=== PATIENT | female | born 1985 | race Caucasian/White ===

== ENCOUNTER 2016-05-20 18:00 | Observation (INO) | payer MEDICAID ==
[~2016-05-20 18:00] MED LIST: METF500T4 PO
[2016-05-20] MEDS ORDERED: GLYB5 PO (19:21)
[2016-05-20] MEDS ORDERED: PREN1TAB80 PO (19:22)
[2016-05-20 19:26] VITALS: BP 111/76
[2016-05-20 20:12] LABS: HEMOGLOBIN A1C 7.4 % (4.5-6.2)
[2016-05-21] MEDS ORDERED: GLYB2.5T5 PO (20:06)
== END 2016-05-20 22:25 | disposition home or self-care (01) ==
LOC: 4S 18:00
PROVIDERS: ADMIT Obstetrics & Gynecology; ATTEND Obstetrics & Gynecology
DX: O46.93 Antepartum hemorrhage, unspecified, third trimester (principal); O24.419 Gestational diabetes mellitus in pregnancy, unspecified control; O40.3XX0 Polyhydramnios, third trimester, not applicable or unspecified; O26.893 Other specified pregnancy related conditions, third trimester; R10.2 Pelvic and perineal pain; Z3A.35 35 weeks gestation of pregnancy
CPT/HCPCS: 36415; 59025; 76805; 82947; 83036; G0378

== ENCOUNTER 2016-05-21 19:56 | Inpatient (IN) | payer MEDICAID ==
[~2016-05-21] VITALS: Ht 152.4 cm; Wt 65.8 kg
[~2016-05-21 19:56] MED LIST changes: +GLYB5 PO; +PREN1TAB80 PO
[2016-05-21] MEDS ORDERED: RINGERS SOLUTION,LACTATED 1,000 ML IV SCH (20:04)
[2016-05-21] MEDS ORDERED: GLYB2.5T5 PO (20:06)
[2016-05-21] MEDS ORDERED: CITRIC ACID/SODIUM CITRATE 30 ML SOLUTION UDCUP PO PRN (20:15)
[2016-05-21] MEDS ORDERED: TERBUTALINE SULFATE 1 MG/ML VIAL SQ PRN (20:15)
[2016-05-21] MEDS ORDERED: METOCLOPRAMIDE HCL 5 MG/ML 2 ML VIAL IVP PRN (20:15)
[2016-05-21 20:25] VITALS: BP 126/73
[2016-05-21 20:41] LABS: GLUCOSE COMMENT 1 Doctor Notified; GLUCOSE,POINT OF CARE 201 MG/DL (70-110)
[2016-05-21] MEDS ORDERED: MAGNESIUM SULFATE 500 ML IV SCH (21:01)
[2016-05-21 21:14] LABS: BASOPHILS # (AUTO) 0.03 K/uL (0.00-0.20); BASOPHILS % (AUTO) 0.4 % (0.0-2.0); EOSINOPHILS % (AUTO) 1.59 % (1.0-6.0); HEMATOCRIT 38.1 % (36-46); HEMOGLOBIN 12.7 g/dL (12.0-16.0); LYMPHOCYTES # (AUTO) 1.3 K/uL (1.0-4.8); LYMPHOCYTES % (AUTO) 22.2 % (22.0-44.0); MEAN CORPUSCULAR HGB CONC 33.4 G/dL (31.0-37.0); MEAN CORPUSCULAR VOLUME 93 fL (80-100); MONOCYTES # (AUTO) 0.4 K/uL (0.1-1.0); MONOCYTES % (AUTO) 6.1 % (2.0-9.0); NEUTROPHILS # (AUTO) 4.2 K/uL (1.8-7.7); NEUTROPHILS % (AUTO) 69.7 % (40.0-70.0)
[2016-05-21] MEDS ORDERED: AZITHROMYCIN 250 MG TABLET PO ONE (21:15)
[2016-05-21] MEDS ORDERED: CALCIUM GLUCONATE 100 MG/ML 10 ML IVP PRN (21:15)
[2016-05-21] MEDS ORDERED: BETAMETHASONE SOLUSPAN 6 MG/ML 5 ML VIAL IM SCH (21:15)
[2016-05-21] MEDS ORDERED: MAGNESIUM SULFATE 4 GM/WATER 100 ML IV ONE (21:15)
[2016-05-21] MEDS ORDERED: AMPICILLIN SODIUM 2 GM/NS 100 ML IV SCH (21:15)
[2016-05-21] MEDS ORDERED: INFLUENZA VIRUS VACCINE QVS 2016-17 (3YR+)/PF 60 MCG/0.5 ML SYRINGE IM ONE (21:30)
[2016-05-21] MEDS ORDERED: FentaNYL CITRATE-PF 100 MCG/2 ML VIAL IVP PRN (22:00)
[2016-05-21] MEDS ORDERED: BUPIVACAINE HCL/PF 0.25% 10 ML VIAL ONE (22:42)
[2016-05-21] MEDS ORDERED: FentaNYL/BUPIV 0.125%/NS/PF 200 ML ED ONE (22:42)
[2016-05-21] MEDS ORDERED: LIDOCAINE HCL/PF 2% 5 ML VIAL ONE (22:42)
[2016-05-21] MEDS ORDERED: OXYTOCIN 30 UNITS/LACT RINGERS 500 ML IV ONE (23:09)
[2016-05-21] MEDS ORDERED: OXYTOCIN 20 UNITS in RINGERS SOLUTION,LACTATED 1,000 ML IV SCH (23:24)
[2016-05-21] MEDS ORDERED: GLYCERIN/WITCH HAZEL LEAF 40 PADS JAR TP PRN (23:30)
[2016-05-21] MEDS ORDERED: BENZOCAINE 20%/MENTHOL 56 GM SPRAY CANISTER TP PRN (23:30)
[2016-05-21] MEDS ORDERED: OxyCODONE HCL/ACETAMINOPHEN 5-325 MG TABLET PO PRN ×2 (23:30)
[2016-05-21] MEDS ORDERED: MAGNESIUM HYDROXIDE SUSPENSION 30 ML UDCUP PO PRN (23:30)
[2016-05-21] MEDS ORDERED: SENNA/DOCUSATE SODIUM 187-50 MG TABLET PO PRN (23:30)
[2016-05-22] MEDS ORDERED: MetFORMIN HCL 500 MG TABLET PO SCH (06:30)
[2016-05-22] MEDS: IBUPROFEN 800 MG TABLET PO PRN ×2 (06:35→13:57)
[2016-05-22 07:06] LABS: GLUCOSE COMMENT 1 Doctor Notified; GLUCOSE,POINT OF CARE 181 MG/DL (70-110)
[2016-05-22 07:12] LABS: EOSINOPHILS % (AUTO) 0 % (1.0-6.0); HEMATOCRIT 39.9 % (36-46); LYMPHOCYTES % (AUTO) 6.6 % (22.0-44.0); MEAN CORPUSCULAR HEMOGLOBIN 30.6 pg (26.0-34.0); MEAN CORPUSCULAR HGB CONC 32.6 G/dL (31.0-37.0); MEAN CORPUSCULAR VOLUME 94 fL (80-100); MONOCYTES # (AUTO) 0.3 K/uL (0.1-1.0); MONOCYTES % (AUTO) 1.9 % (2.0-9.0); NEUTROPHILS # (AUTO) 13.3 K/uL (1.8-7.7); RED BLOOD CELL COUNT(AUTO) 4.24 MIL/uL (4.00-5.20); RED CELL DISTRIBUTION WIDTH 13.1 % (11.5-14.5); WHITE BLOOD COUNT (AUTO) 14.6 K/uL (4.5-11.0)
[2016-05-22 07:47] LABS: NEUTROPHILS % (AUTO) 91.5 % (40.0-70.0)
[2016-05-22 09:51] LABS: GLUCOSE COMMENT 1 Doctor Notified; GLUCOSE,POINT OF CARE 211 MG/DL (70-110)
[2016-05-22] MEDS ORDERED: INSULIN ASPART 100 UNITS/ML SQ PRN (10:15)
[2016-05-22] MEDS ORDERED: DEXTROSE 50%-WATER 25 GM/50 ML SYRINGE IVP PRN (10:15)
[2016-05-22] MEDS ORDERED: IBUP-2070 PO (11:14)
[2016-05-22] MEDS ORDERED: DSS100 PO (11:15)
[2016-05-22 11:49] LABS: GLUCOSE COMMENT 1 Received Meds; GLUCOSE,POINT OF CARE 178 MG/DL (70-110)
== END 2016-05-22 14:05 | disposition home or self-care (01) | DRG 560 ==
LOC: 4S 19:56 → OBSVTOIN 19:56
PROVIDERS: ADMIT Obstetrics & Gynecology; ATTEND Obstetrics & Gynecology
PROC: 10E0XZZ Delivery of Products of Conception, External Approach (ICD-10-PCS; principal; 2016-05-21)
DX: O60.14X0 Preterm labor third trimester with preterm delivery third trimester, not applicable or unspecified (principal); Q04.2 Holoprosencephaly; O24.12 Pre-existing type 2 diabetes mellitus, in childbirth; E11.9 Type 2 diabetes mellitus without complications; O35.8XX0 Maternal care for other (suspected) fetal abnormality and damage, not applicable or unspecified; O42.913 Preterm premature rupture of membranes, unspecified as to length of time between rupture and onset of labor, third trimester; Z37.0 Single live birth; Z3A.31 31 weeks gestation of pregnancy; Z79.84 Long term (current) use of oral hypoglycemic drugs; Z28.21 Immunization not carried out because of patient refusal
CPT/HCPCS: 82962; 86850; 86900; 86901; J0290; J0702; J2590; J3010; J3475; J3490; J7120

== ENCOUNTER 2018-03-03 09:58 | Emergency (ER) | payer MEDICAID ==
[~2018-03-03] VITALS: Ht 144.8 cm; Wt 50.0 kg
[~2018-03-03 09:58] MED LIST changes: +DSS100 PO; +GLYB2.5T5 PO; +IBUP-2070 PO; -METF500T4 PO
[2018-03-03] MEDS ORDERED: METF-960 PO (10:16)
[2018-03-03 10:18] LABS: GLUCOSE,POINT OF CARE 279 MG/DL (70-110)
[2018-03-03] MEDS ORDERED: IBUPROFEN 800 MG TABLET PO ONE (12:00)
[2018-03-03] MEDS ORDERED: ACETAMINOPHEN 325 MG TABLET PO ONE (12:00)
[2018-03-03 12:38] LABS: BASOPHILS % (AUTO) 0.9 % (0.0-2.0); EOSINOPHILS % (AUTO) 0.1 % (1.0-6.0); HEMATOCRIT 42.3 % (36-46); HEMOGLOBIN 14.7 g/dL (12.0-16.0); LYMPHOCYTES # (AUTO) 0.6 K/uL (1.0-4.8); LYMPHOCYTES % (AUTO) 7.8 % (22.0-44.0); MEAN CORPUSCULAR HEMOGLOBIN 32.2 pg (26.0-34.0); MEAN CORPUSCULAR HGB CONC 34.8 G/dL (31.0-37.0); MEAN CORPUSCULAR VOLUME 93 fL (80-100); MONOCYTES # (AUTO) 0.4 K/uL (0.1-1.0); MONOCYTES % (AUTO) 5.5 % (2.0-9.0); NEUTROPHILS # (AUTO) 6.7 K/uL (1.8-7.7); NEUTROPHILS % (AUTO) 85.7 % (40.0-70.0); PLATELET COUNT (AUTO) 239 K/uL (150-450); RED BLOOD CELL COUNT(AUTO) 4.58 MIL/uL (4.00-5.20); RED CELL DISTRIBUTION WIDTH 12.6 % (11.5-14.5)
[2018-03-03 12:47] LABS: ANION GAP 10 mmol/L (8-16); CALCIUM, TOTAL 8.6 mg/dL (8.8-10.5); CARBON DIOXIDE 22 mmol/L (22-29); CHLORIDE 101 mmol/L (98-107); CREATININE 0.62 mg/dL (0.60-1.30); GLOMERULAR FILTR. RATE CALC > 60 mL/min (>60); GLUCOSE,RANDOM 247 mg/dL (70-110); POTASSIUM 3.9 mmol/L (3.5-5.1); SODIUM SERUM 133 mmol/L (136-145); UREA NITROGEN, BLOOD 12 mg/dL (7-18)
[2018-03-03 12:58] LABS: ALANINE AMINOTRANSFERASE 39 U/L (12-78); ALBUMIN 3.9 g/dL (3.4-5.0); ALKALINE PHOSPHATASE 73 U/L (46-116); ASPARTATE AMINOTRANSFERASE 17 U/L (15-37); BILIRUBIN,TOTAL 0.7 mg/dL (0.1-1.0); HCG,QUANTITATIVE 1 mIU/mL (0-6); LIPASE 145 U/L (73-393); TOTAL PROTEIN, SERUM 7.5 g/dL (6.4-8.2)
[2018-03-03 13:20] VITALS: BP 136/72
[2018-03-03 13:28] LABS: BILIRUBIN,URINE NEGATIVE (NEGATIVE); GLUCOSE, URINE (UA) >=1000 mg/dL (NEGATIVE); KETONES,URINE 15 mg/dL (NEGATIVE); LEUKOCYTE ESTERASE ,URINE NEGATIVE (NEGATIVE); NITRATE,URINE POSITIVE (NEGATIVE); OCCULT BLOOD,URINE TRACE (NEGATIVE); PH,URINE 5.5 (5.0-8.0); PROTEIN,URINE NEGATIVE (NEGATIVE); UROBILINOGEN,URINE 0.2 mg/dL (<=1.0)
[2018-03-03 13:40] LABS: APPEARANCE,URINE HAZY (CLEAR); BACTERIA,URINE Many /HPF (None Seen); RBC,URINE None Seen /HPF (0-2); SQUAMOUS EPITHELIAL CELL,UR Moderate /LPF (None Seen); WBC,URINE None Seen /HPF (0-5)
[2018-03-03 18:37] LABS: INFLUENZA TYPE A POSITIVE FOR TYPE A (NEGATIVE); INFLUENZA TYPE B NEGATIVE FOR TYPE B (NEGATIVE)
== END 2018-03-03 14:55 | disposition home or self-care (01) ==
LOC: EMS 09:59
DX: J11.1 Influenza due to unidentified influenza virus with other respiratory manifestations (principal); R11.2 Nausea with vomiting, unspecified; E11.9 Type 2 diabetes mellitus without complications; Z79.84 Long term (current) use of oral hypoglycemic drugs
CPT/HCPCS: 87086; 87804

== ENCOUNTER 2022-05-01 06:00 | Emergency (ER) | payer MEDICAID, OTHER ==
[~2022-05-01] VITALS: Ht 152.4 cm; Wt 65.9 kg
[~2022-05-01 06:00] MED LIST changes: +DOCU-385 PO; -DSS100 PO; -GLYB5 PO; -IBUP-2070 PO; +IBUP-2077 PO; +METF-1211 PO; -PREN1TAB80 PO
[2022-05-01] MEDS ORDERED: TraMADol HCL 50 MG TABLET PO ONE (06:30)
[2022-05-01] MEDS ORDERED: LIDOCAINE 5% TRANSDERMAL PATCH TD ONE (06:30)
[2022-05-01 07:18] VITALS: BP 123/77
[2022-05-01] MEDS ORDERED: TRAM-559 PO (07:19)
== END 2022-05-01 08:41 | disposition home or self-care (01) ==
LOC: EMS 06:01
DX: S46.911A Strain of unspecified muscle, fascia and tendon at shoulder and upper arm level, right arm, initial encounter (principal); E11.9 Type 2 diabetes mellitus without complications; K80.20 Calculus of gallbladder without cholecystitis without obstruction; X58.XXXA Exposure to other specified factors, initial encounter; Y93.89 Activity, other specified; Y92.89 Other specified places as the place of occurrence of the external cause; Y99.8 Other external cause status
CPT/HCPCS: 99283

== ENCOUNTER 2022-05-14 07:15 | Emergency (ER) | payer MEDICAID ==
[~2022-05-14] VITALS: Ht 152.4 cm; Wt 50.0 kg
[~2022-05-14 07:15] MED LIST changes: +TRAM-559 PO
[2022-05-14 07:17] VITALS: BP 110/71
[2022-05-14] MEDS ORDERED: ACET-66 PO (07:21)
[2022-05-14 07:36] LABS: GLUCOMETER DEV NAME(LOC) ERT.5; GLUCOSE,POINT OF CARE 249 MG/DL (70-110)
[2022-05-14] MEDS ORDERED: IBUP-1492 PO (07:42)
[2022-05-14] MEDS ORDERED: IBUPROFEN 600 MG TABLET PO ONE (07:45)
== END 2022-05-14 08:10 | disposition home or self-care (01) ==
LOC: EMS 07:19
DX: M25.532 Pain in left wrist (principal); M25.531 Pain in right wrist; M25.562 Pain in left knee; M25.561 Pain in right knee; G56.01 Carpal tunnel syndrome, right upper limb; E11.9 Type 2 diabetes mellitus without complications; K80.20 Calculus of gallbladder without cholecystitis without obstruction
CPT/HCPCS: 82962; 99282